=== PATIENT | female | born 1975 | race Caucasian/White ===

== ENCOUNTER 2017-09-08 15:38 | Emergency (ER) | payer OTHER ==
--- NOTE | 2017-09-08 15:59 | CPEKG ---
Heart Rate: 89 RR Interval: 674 P-R Interval: 128 QRSD Interval: 100 QT Interval: 356 QTC Interval: 434 P Supply: 56 QRS Supply: 52 T Wave Supply: 48 EKG Severity - NORMAL ECG - EKG Impression: SINUS RHYTHM Electronically Signed By: Darion Waddell 08-Sep-2017 16:37:01
[2017-09-08 16:19] LABS: % IMMATURE GRANULYOCYTES 0.1 % (0.0-1.1); ABSOLUTE IMMATURE GRANULOCYTES 0.01 10^3/uL (0.00-0.10); ADD DIFF? NO; ADD MORPH? NO; ADD SCAN? NO; ATYPICAL LYMPHOCYTE FLAG 10 (0-99); FRAGMENT RBC FLAG 0 (0-99); HEMATOCRIT 40.4 % (38.0-47.0); LEFT SHIFT FLG 0 (0-99); LIPEMIA HEMOLYSIS FLAG 90 (0-99); MEAN CELL HEMOGLOBIN 32.6 pg (27.9-34.1); MEAN CELL HEMOGLOBIN CONCENTR. 34.7 g/dL (32.4-36.7); MEAN PLATELET VOLUME 9.3 fL (8.7-11.7); PLATELET CLUMPS FLAG 30 (0-99); PLATELET COUNT 230 10^3/uL (150-400); RED CELL DISTRIBUTION WIDTH 12.3 % (11.5-15.2)
[2017-09-08 16:30] LABS: ANION GAP 15 mEq/L (8-16); CALCIUM 9.8 mg/dL (8.5-10.4); CARBON DIOXIDE 22 mEq/l (22-31); CHLORIDE 102 mEq/L (97-110); CREATININE 0.6 mg/dL (0.6-1.0); GLOMERULAR FILTRATION RATE > 60; GLUCOSE 88 mg/dL (70-100); POTASSIUM 4.2 mEq/L (3.5-5.2); SODIUM 139 mEq/L (134-144)
--- NOTE | 2017-09-08 16:39 | EDPHY ---
H & P Time Seen by Provider: 09/08/17 16:13 HPI/ROS: CHIEF COMPLAINT: Chest pain and shortness of breath HISTORY OF PRESENT ILLNESS: This 39-year-old woman moved here from [place] after having been diagnosed with pulmonary embolism and left lower extremity DVT 6 months ago. She has factor 5 Leiden and was on Xarelto until 2 weeks ago when she saw Dr. Latasha Holder in the office in the decided to try her off anticoagulation. Patient describes more shortness of breath and chest pain over the past 2 weeks. Chest pain was initially felt like somebody was "sitting on me "but now feels "sharp and pinching "does did not radiate not associated with cough or fever. She does have a little bit of left calf pain associated. Symptoms not better or worse with exertion. REVIEW OF SYSTEMS: Eye: no change in vision ENT: no sore throat Cardiac: HPI, has had intermittent palpitations over the last couple of weeks Pulmonary: HPI Abdomen: no vomiting, diarrhea, abdominal pain Musculoskeletal: She had some right arm pain and a lump on her wrist this morning but could not tell if it was from walking her dog or not, in any case it is completely resolved now. Skin: no rash Neuro: no headache Constitutional: no fever : no urinary symptoms A comprehensive 10 point review of systems is otherwise negative aside from elements mentioned in the history of present illness. PAST MEDICAL HISTORY: Includes TIA, PE and DVT, cardiac ablation for AFib. Left hernia repair. Social history: , moved recently from [place] General Appearance: Alert and conversant, cooperative. Eyes: No scleral icterus. ENT, Mouth: Normal mucous membranes. Respiratory: Normal respiratory effort, breath sounds equal, lungs are clear to auscultation. Cardiovascular: Regular rate and rhythm. Gastrointestinal: Abdomen is soft and non tender. Neurological: Alert and oriented x3. Normally conversant. Face symmetric, normal movement and sensation in all extremities. Skin: Warm and dry, no rashes. Musculoskeletal: No calf tenderness. Both upper arms and forearms and wrists are symmetric and normal. Patient agrees and does not feel symptomatic in her arms currently. Normal bilateral radial pulses. Normal motor sensory and perfusion in both hands. Psychiatric: Not agitated. Emergency Department course/MDM: Moderately high risk for PE given initial heart rate of 94 and history of PE on factor [address] Leiden. Plan for chest CT and left lower extremity ultrasound. I think that acute coronary syndrome is unlikely. 1732: Negative left leg ultrasound per [facility]. 1801: Negative CT angiogram per [facility]. Patient referred back to Dr. Holder for discussion of whether or not anticoagulation should be re-initiated. She does not appear to have acute venous thromboembolism today on evaluation. 1811: results discussed. Smoking Status: Never smoked Constitutional: Initial Vital Signs Temperature (C) 37 C 09/08/17 15:43 Heart Rate 94 09/08/17 15:43 Respiratory Rate 20 09/08/17 15:43 Blood Pressure 117/84 H 09/08/17 15:43 O2 Sat (%) 96 09/08/17 15:43 O2 Delivery Mode Room Air Allergies/Adverse Reactions: codeine Allergy (Verified 09/08/17 15:42) Sulfa (Sulfonamide Antibiotics) Allergy (Verified 09/08/17 15:42) Home Medications: Medication Instructions Recorded NK [No Known Home Meds] 09/08/17 Medical Decision Making - Diagnostics EKG Interpretation: 12-lead EKG interpreted by me; official reading is in trace master. My interpretation is sinus rhythm rate 89 no ischemic changes. Imaging Results: Imaging Impressions Chest/Thorax CTA 09/08/17 16:35 Impression: 1. No evidence of thrombopulmonary embolic disease. 2. Clear lungs. No effusion or atelectasis. Findings discussed with Emergency Department physician, Darion Waddell on 2016, 18:01. Extremity Venous Study 09/08/17 16:35 Impression: Negative. No deep venous thrombosis. Findings discussed with Emergency Department physician, Darion Waddell on 2016, 17:32. Differential Diagnosis: Differential diagnosis considered for chest pain including but not limited to myocardial ischemia, aortic dissection, pericarditis, pulmonary embolus, chest wall pain, pleural inflammation and pulmonary infectious causes. - Data Points Laboratory Results: Laboratory Results 09/08/17 16:07 09/08/17 16:07 09/08/17 09/08/17 09/08/17 16:07 16:07 16:07 WBC 6.99 10^3/uL 10^3/uL (3.80-9.50) RBC 4.30 10^6/uL 10^6/uL (4.18-5.33) Hgb 14.0 g/dL g/dL (12.6-16.3) Hct 40.4 % % (38.0-47.0) MCV 94.0 fL fL (81.5-99.8) MCH 32.6 pg pg (27.9-34.1) MCHC 34.7 g/dL g/dL (32.4-36.7) RDW 12.3 % % (11.5-15.2) Plt Count 230 10^3/uL 10^3/uL (150-400) MPV 9.3 fL fL (8.7-11.7) Neut % (Auto) 57.7 % % (39.3-74.2) Lymph % (Auto) 30.6 % % (15.0-45.0) Mclennan % (Auto) 9.0 % % (4.5-13.0) Eos % (Auto) 1.7 % % (0.6-7.6) Baso % (Auto) 0.9 % % (0.3-1.7) Nucleat RBC Rel Count 0.0 % % (0.0-0.2) Absolute Neuts (auto) 4.03 10^3/uL 10^3/uL (1.70-6.50) Absolute Lymphs (auto) 2.14 10^3/uL 10^3/uL (1.00-3.00) Absolute Monos (auto) 0.63 10^3/uL 10^3/uL (0.30-0.80) Absolute Eos (auto) 0.12 10^3/uL 10^3/uL (0.03-0.40) Absolute Basos (auto) 0.06 10^3/uL 10^3/uL (0.02-0.10) Absolute Nucleated RBC 0.00 10^3/uL 10^3/uL (0-0.01) Immature Gran % 0.1 % % (0.0-1.1) Immature Gran # 0.01 10^3/uL 10^3/uL (0.00-0.10) Sodium 139 mEq/L mEq/L (134-144) Potassium 4.2 mEq/L mEq/L (3.5-5.2) Chloride 102 mEq/L mEq/L (97-110) Carbon Dioxide 22 mEq/l mEq/l (22-31) Anion Gap 15 mEq/L mEq/L (8-16) BUN 16 mg/dL mg/dL (7-23) Creatinine 0.6 mg/dL mg/dL (0.6-1.0) Estimated GFR > 60 Glucose 88 mg/dL mg/dL (70-100) Calcium 9.8 mg/dL mg/dL (8.5-10.4) Troponin I < 0.012 ng/mL ng/mL (0.000-0.034) Beta HCG, Qual NEGATIVE Departure - Departure Disposition: Home, Routine, Self-Care Clinical Impression: Chest pain Qualifiers: Chest pain type: unspecified Qualified Code(s): R07.9 - Chest pain, unspecified Condition: Good Instructions: Chest Pain (ED) Additional Instructions: Left leg ultrasound negative for DVT. Chest CT negative for pulmonary embolism. Referrals: Latasha Holder MD [Medical Doctor] - As per Instructions Jaime Dahl MD [Medical Doctor] - As per Instructions (Cardiology referral for outpatient cardiac monitoring)
[2017-09-08 16:41] LABS: TROPONIN I < 0.012 ng/mL (0.000-0.034)
[2017-09-08] MEDS ORDERED: IOPAMIDOL (ISOVUE 370) 100 ML BTL IV ONE (17:02)
[2017-09-08 18:21] VITALS: BP 108/72; PULSE 78; RESP 18; TEMP 98.2; O2SAT 95
== END 2017-09-08 18:21 | disposition home or self-care (01) ==
DX: R07.9 Chest pain, unspecified (principal)
CPT/HCPCS: Q9967

== ENCOUNTER → 2017-12-09 | Outpatient (CLI) | payer OTHER ==
[~2017-12-09] MED LIST: IOPAMIDOL (ISOVUE 370) 100 ML BTL IV ONE
== END ==
LOC: FIMAGING 13:01
PROVIDERS: ATTEND Nurse Practitioner Adult Health
DX: R51 Headache (principal); Z86.73 Personal history of transient ischemic attack (TIA), and cerebral infarction without residual deficits
CPT/HCPCS: Q9967